=== PATIENT | female | born 1980 | race Two or more races ===

== ENCOUNTER 2016-11-03 03:43 | Emergency (ER) | payer OTHER ==
[~2016-11-03] VITALS: Ht 162.6 cm; Wt 59.0 kg
[2016-11-03 03:50] VITALS: BP 130/80
[2016-11-03 04:10] VITALS: BP 130/80
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
== END 2016-11-03 04:20 ==
LOC: EDBD 03:43 → EMR 03:55
DX: R10.9 Unspecified abdominal pain (principal); M54.5 Low back pain
CPT/HCPCS: 99283